=== PATIENT | female | born 1970 | race African-American/Black ===

== ENCOUNTER → 2024-05-01 06:16 | Outpatient (REF) | payer BC, SELFPAY ==
[2024-05-01 07:27] LABS: % Basophils 0.8 % (0-2); % Eosinophils 0.4 % (0-6); % Lymphocytes 45.9 % (20.5-51.1); % Monocytes 7.5 % (1.7-9.3); % Neutrophils 45.4 % (42.2-75.2); Absolute Lymphocytes 2.3 10^3/uL (1.2-3.4); Absolute Monocytes 0.4 10^3/uL (0.1-0.6); Absolute Neutrophils 2.3 10^3/uL (1.4-6.5); Hematocrit 35.8 % (37.0-47.0); Hemoglobin 11.9 g/dL (12.0-16.0); Mean Corp Hgb Conc. 33.2 g/dL (33.0-37.0); Mean Corpuscular Hgb 27.6 pg (27.0-31.0); Mean Corpuscular Volume 83.1 fL (81.0-99.0); Mean Platelet Volume 9.9 fL (7.4-10.4); Nucleated Red Blood Cells % 0 %; Platelet Count 283 10^3/uL (130-400); Red Blood Cell Count 4.31 10^6/uL (4.20-5.40); Red Cell Dist. Width 14.6 % (11.5-14.5); White Blood Cell Count 5.1 10^3/uL (4.8-10.8)
[2024-05-01 07:48] LABS: ALT (SGPT) 18 U/L (0-35); AST (SGOT) 22 U/L (14-36); Albumin 3.8 g/dl (3.5-5.0); Alkaline Phosphatase 68 U/L (38-126); Blood Urea Nitrogen 16 mg/dl (7-17); Calcium 9.8 mg/dl (8.4-10.2); Carbon Dioxide 28 mmol/L (22-30); Chloride 107 mmol/L (98-107); Glucose 93 mg/dl (70-99); HDL Cholesterol 87 mg/dl; LDL Cholesterol, Calculated 122 mg/dl; Potassium 4.8 mmol/L (3.5-5.1); Sodium 139 mmol/L (135-145); Total Bilirubin 0.4 mg/dl (0.2-1.3); Total Cholesterol 217 mg/dl (50-199); Total Protein 6.9 g/dl (6.3-8.2); Triglyceride 40 mg/dl (10-149); Very Low Density Lipoprotein 8 mg/dl (0-30); eGFR > 60.00
== END ==
LOC: REG 06:16
PROVIDERS: ATTENDING PHYSICIAN Family Medicine
DX: Z00.00 Encounter for general adult medical examination without abnormal findings (principal); E78.00 Pure hypercholesterolemia, unspecified; I10 Essential (primary) hypertension; R73.01 Impaired fasting glucose
CPT/HCPCS: 36415; 80053; 80061; 83036; 85025

== ENCOUNTER → 2024-06-18 06:26 | Day surgery (SDC) | payer BC, SELFPAY | LOC: GI 06:26 | PROVIDERS: ATTENDING PHYSICIAN Internal Medicine | DX: K92.1 Melena (principal); K64.8 Other hemorrhoids; K63.5 Polyp of colon | CPT/HCPCS: 45380; 88305 ==

== ENCOUNTER 2024-10-24 06:16 | Day surgery (SDC) | payer BC, SELFPAY ==
[2024-10-24 06:36] VITALS: BMI 33.7
[2024-10-24 06:37] VITALS: BMI 33.7
[2024-10-24 06:41] VITALS: BP 124/77
[2024-10-24] MEDS: MYDRIACYL 1 DROP OPHTH ×3 (06:46→07:00)
[2024-10-24] MEDS: ALCAINE 0.5% EYE DROPS 1 DROP OPHTH (06:46)
[2024-10-24] MEDS: NEO-SYNEPHRINE 2.5% OPH SOL. 1 DROP OPHTH ×3 (06:47→07:01)
[2024-10-24] MEDS: POLYTRIM OPHTHALMIC SOLUTION 1 DROP OPHTH ×3 (06:47→07:01)
[2024-10-24] MEDS: PRED FORTE 1% EYE DROPS 1 DROP OPHTH ×3 (06:47→07:00)
[2024-10-24] MEDS: CYCLOGYL 1% EYE DROPS 1 DROP OPHTH ×3 (06:47→07:01)
[2024-10-24] MEDS: ACUVAIL 10 DROPS OPHTH ×3 (06:48→07:01)
[2024-10-24] MEDS: AKTEN OPHTHALMIC GEL 1 ML OPHTH (07:01)
[2024-10-24 08:20] VITALS: BP 128/80
[2024-10-24 08:35] VITALS: BP 121/81
== END 2024-10-24 08:42 | disposition home or self-care (01) ==
LOC: SDS 06:16
PROVIDERS: ATTENDING PHYSICIAN Ophthalmology
DX: H25.811 Combined forms of age-related cataract, right eye (principal)
CPT/HCPCS: 66850; V2632

== ENCOUNTER 2024-11-07 06:28 | Day surgery (SDC) | payer BC, SELFPAY ==
[2024-11-07 06:34] VITALS: BMI 33.0
[2024-11-07 06:36] VITALS: BMI 33.0
[2024-11-07 06:37] VITALS: BP 131/84
[2024-11-07] MEDS: ALCAINE 0.5% EYE DROPS 1 DROP OPHTH (06:42)
[2024-11-07] MEDS: PRED FORTE 1% EYE DROPS 1 DROP OPHTH (06:42)
[2024-11-07] MEDS: CYCLOGYL 1% EYE DROPS 1 DROP OPHTH (06:43)
[2024-11-07] MEDS: POLYTRIM OPHTHALMIC SOLUTION 1 DROP OPHTH (06:43)
[2024-11-07] MEDS: MYDRIACYL 1 DROP OPHTH (06:43)
[2024-11-07] MEDS: ACUVAIL 1 DROPS OPHTH (06:44)
[2024-11-07] MEDS: NEO-SYNEPHRINE 2.5% OPH SOL. 1 DROP OPHTH (06:44)
[2024-11-07] MEDS: AKTEN OPHTHALMIC GEL 1 ML OPHTH (06:44)
[2024-11-07 08:22] VITALS: BP 134/86
== END 2024-11-07 08:46 | disposition home or self-care (01) ==
LOC: SDS 06:28
PROVIDERS: ATTENDING PHYSICIAN Ophthalmology
DX: H25.812 Combined forms of age-related cataract, left eye (principal)
CPT/HCPCS: 66984

== ENCOUNTER → 2024-11-27 06:17 | Outpatient (REF) | payer BC, SELFPAY ==
[2024-11-27 08:02] LABS: HDL Cholesterol 105 mg/dl; LDL Cholesterol, Calculated 87 mg/dl; Total Cholesterol 200 mg/dl (50-199); Triglyceride 42 mg/dl (10-149); Very Low Density Lipoprotein 8 mg/dl (0-30)
== END ==
LOC: REG 06:17
PROVIDERS: ATTENDING PHYSICIAN Family Medicine
DX: E78.00 Pure hypercholesterolemia, unspecified (principal)
CPT/HCPCS: 36415; 80061

== ENCOUNTER → 2024-12-20 06:18 | Outpatient (REF) | payer BC, SELFPAY ==
[2024-12-20 06:51] LABS: % Basophils 0.9 % (0-2); % Eosinophils 1.3 % (0-6); % Lymphocytes 39.6 % (20.5-51.1); % Monocytes 7.3 % (1.7-9.3); % Neutrophils 50.9 % (42.2-75.2); Absolute Eosinophils 0.1 10^3/uL (0-0.7); Absolute Lymphocytes 1.9 10^3/uL (1.2-3.4); Absolute Monocytes 0.3 10^3/uL (0.1-0.6); Absolute Neutrophils 2.4 10^3/uL (1.4-6.5); Hematocrit 38.2 % (37.0-47.0); Hemoglobin 12.3 g/dL (12.0-16.0); Mean Corp Hgb Conc. 32.2 g/dL (33.0-37.0); Mean Corpuscular Hgb 27.4 pg (27.0-31.0); Mean Corpuscular Volume 85.1 fL (81.0-99.0); Mean Platelet Volume 9.5 fL (7.4-10.4); Nucleated Red Blood Cells % 0 %; Platelet Count 289 10^3/uL (130-400); Red Blood Cell Count 4.49 10^6/uL (4.20-5.40); Red Cell Dist. Width 15.1 % (11.5-14.5); White Blood Cell Count 4.7 10^3/uL (4.8-10.8)
[2024-12-20 07:14] LABS: ALT (SGPT) 21 U/L (0-35); AST (SGOT) 25 U/L (14-36); Alkaline Phosphatase 72 U/L (38-126); Blood Urea Nitrogen 15 mg/dl (7-17); Calcium 9.5 mg/dl (8.4-10.2); Carbon Dioxide 29 mmol/L (22-30); Chloride 105 mmol/L (98-107); Direct Bilirubin 0.3 mg/dl (0.0-0.4); Glucose 93 mg/dl (70-99); HDL Cholesterol 96 mg/dl; LDL Cholesterol, Calculated 110 mg/dl; Potassium 4.7 mmol/L (3.5-5.1); Sodium 140 mmol/L (135-145); Total Bilirubin 0.4 mg/dl (0.2-1.3); Total Cholesterol 213 mg/dl (50-199); Triglyceride 37 mg/dl (10-149); Very Low Density Lipoprotein 7 mg/dl (0-30); eGFR > 60.00
[2024-12-20 18:51] LABS: Hepatitis B Surface Antigen Negative (Negative)
[2024-12-20 19:08] LABS: Hepatitis B Surface Antibody Negative; Hepatitis C Antibody Negative (Negative)
[2024-12-22 07:41] LABS: Quantiferon Mitogen minus NIL 9.34 IU/mL; Quantiferon TB Gold Plus Negative (Negative)
== END ==
LOC: REG 06:18
PROVIDERS: ATTENDING PHYSICIAN Physician Assistant Medical; FAMILY PHYSICIAN Family Medicine
DX: L40.0 Psoriasis vulgaris (principal)
CPT/HCPCS: 36415; 80053; 80061; 82248; 85025; 86480; 86706; 86803; 87340

== ENCOUNTER → 2025-02-06 15:49 | Outpatient (REF) | payer BC, SELFPAY | LOC: HWWDC 15:49 | PROVIDERS: ATTENDING PHYSICIAN Family Medicine | DX: Z12.31 Encounter for screening mammogram for malignant neoplasm of breast (principal) | CPT/HCPCS: 77063; 77067 ==

== ENCOUNTER → 2025-05-06 06:17 | Outpatient (REF) | payer BC, SELFPAY ==
[2025-05-06 07:18] LABS: % Basophils 0.6 % (0-2); % Immature Granulocytes 0.2 % (0-0.5); % Lymphocytes 47.8 % (20.5-51.1); % Monocytes 7.4 % (1.7-9.3); Absolute Eosinophils 0.1 10^3/uL (0-0.7); Absolute Lymphocytes 2.5 10^3/uL (1.2-3.4); Absolute Monocytes 0.4 10^3/uL (0.1-0.6); Absolute Neutrophils 2.2 10^3/uL (1.4-6.5); Hematocrit 37.8 % (37.0-47.0); Hemoglobin 12.3 g/dL (12.0-16.0); Mean Corp Hgb Conc. 32.5 g/dL (33.0-37.0); Mean Corpuscular Hgb 27.1 pg (27.0-31.0); Mean Corpuscular Volume 83.3 fL (81.0-99.0); Nucleated Red Blood Cells % 0 %; Platelet Count 278 10^3/uL (130-400); Red Blood Cell Count 4.54 10^6/uL (4.20-5.40); Red Cell Dist. Width 14.7 % (11.5-14.5); White Blood Cell Count 5.2 10^3/uL (4.8-10.8)
[2025-05-06 07:53] LABS: ALT (SGPT) 19 U/L (0-35); AST (SGOT) 23 U/L (14-36); Alkaline Phosphatase 68 U/L (38-126); Blood Urea Nitrogen 15 mg/dl (7-17); Calcium 9.8 mg/dl (8.4-10.2); Carbon Dioxide 26 mmol/L (22-30); Chloride 110 mmol/L (98-107); Glucose 97 mg/dl (70-99); HDL Cholesterol 82 mg/dl; LDL Cholesterol, Calculated 109 mg/dl; Potassium 4.8 mmol/L (3.5-5.1); Sodium 141 mmol/L (135-145); Total Bilirubin 0.5 mg/dl (0.2-1.3); Total Cholesterol 201 mg/dl (50-199); Triglyceride 52 mg/dl (10-149); Very Low Density Lipoprotein 10 mg/dl (0-30); eGFR > 60.00
== END ==
LOC: REG 06:17
PROVIDERS: ATTENDING PHYSICIAN Family Medicine
DX: Z00.00 Encounter for general adult medical examination without abnormal findings (principal); E78.00 Pure hypercholesterolemia, unspecified; I10 Essential (primary) hypertension; R73.01 Impaired fasting glucose
CPT/HCPCS: 36415; 80053; 80061; 83036; 85025